=== PATIENT | male | born 1975 | race Two or more races ===

== ENCOUNTER 2016-11-13 15:29 | Emergency (ER) | payer SELFPAY ==
[~2016-11-13] VITALS: Ht 162.6 cm; Wt 72.6 kg
--- NOTE | 2016-11-13 16:01 | Diagnostic Imaging Report ---
Indications: Altered mental status Technique: Spiral acquisitions obtained through the brain. Angled axial and coronal 5 x 5 mm slices were reconstructed. Total dose length product 1837 mGycm. CTDI vol(s) 70, 70 mGy. Dose reduction achieved using automated exposure control Comparison: None Findings: There is evidence of cerebral and cerebellar volume loss, with mild enlargement of ventricles and extra-axial CSF spaces, out of proportion to patient's age. No acute hemorrhage or edema. No mass effect or midline shift. Normal hodge-white differentiation. Intact calvarium. Visualized orbits and sinuses are unremarkable. Impression: Cerebral and cerebellar volume loss, somewhat out of proportion to patient's age Negative for acute intracranial bleed or mass effect The CT scanner at [facility] is accredited by the [employer] and the scans are performed using protocols designed to limit radiation exposure to as low as reasonably achievable to attain images of sufficient resolution adequate for diagnostic evaluation.
--- NOTE | 2016-11-13 16:11 | Emergency Room Report ---
History of Present Illness General Chief Complaint: Alcohol Intoxication Source: EMS Present Illness HPI 31-year-old male presents to the emergency department brought by ambulance for altered mental status. EMS states that patient furnished bottle of vodka on scene. Patient is alert and verbal however due to altered mental status history of present illness and ROS is difficult to obtain. Patient states that he fell and he gives 2 different time frames one being 3 days ago and one being 8 years ago.. at this time patient is a poor historian. Allergies: Coded Allergies: UNABLE TO ASSESS (Unverified , 11/13/16) Patient History Past Medical History: see triage record Past Surgical History: none Pertinent Family History: none Nursing Documentation-[facility] Past Medical History Deferred: Pt Cognitively Impaired Past Medical History: Deferred Review of Systems All Other Systems: limited Physical Exam Vital Signs Date Time Temp Pulse Resp B/P (MAP) Pulse Ox O2 Delivery O2 Flow Rate FiO2 11/13/16 15:18 97.5 66 18 128/77 99 Room Air Medical Decision Making PA Attestation Dr. lopez is my supervising Physician whom patient management has been discussed with. Diagnostic Impression: Primary Impression: Acute alcoholic intoxication Qualified Codes: F10.929 - Alcohol use, unspecified with intoxication, unspecified ER Course 31-year-old male presents to the emergency department brought by ambulance for altered mental status. EMS states that patient furnished bottle of vodka on scene. Patient is alert and verbal however due to altered mental status history of present illness and ROS is difficult to obtain. Patient states that he fell and he gives 2 different time frames one being 3 days ago and one being 8 years ago.. at this time patient is a poor historian. pt. is NAD, pt. is alert, no obvious signs of trauma, slurred speech, and answers to questions are not always appropriate. pt is however very talkative . Ddx considered but are not limited to ETOH, Trauma, Syncope, dementia, OD Vital signs: are WNL, pt. is afebrile , non-hypertensive, NAD otherwise, non - toxic in appearance. H&PE are most consistent with ETOH acute intoxication, will do Head CT to r/o acute intracranial process. will do basic lab work and check ETOH level for confirmation of suspected dx. ORDERS: -CBC: pancytopenia -CMP: elevated LFTs -Serum ETOH: 484 -CT HEAD NO CONTRAST: No evidence of acute fracture, hemorrhage, or intracranial process Per: official radiology report ED INTERVENTIONS: -1 Liter NS Bolus Observance while he detoxifies. Pt. was allowed to sleep/rest. PT. became awake and alert x 3 DISCHARGE: At this time pt. is stable for d/c to home. Will provide printed patient care instructions, and any necessary prescriptions. Care plan and follow up instructions have been discussed with the patient prior to discharge. Labs Test 11/13/16 16:25 White Blood Count 3.1 K/UL (4.8-10.8) Red Blood Count 3.57 M/UL (4.70-6.10) Hemoglobin 12.5 G/DL (14.2-18.0) Hematocrit 35.5 % (42.0-52.0) Mean Corpuscular Volume 99 FL (80-99) Mean Corpuscular Hemoglobin 35.1 PG (27.0-31.0) Mean Corpuscular Hemoglobin Concent 35.3 G/DL (32.0-36.0) Red Cell Distribution Width 16.8 % (11.6-14.8) Platelet Count 104 K/UL (150-450) Mean Platelet Volume 6.7 FL (6.5-10.1) Neutrophils (%) (Auto) % (45.0-75.0) Lymphocytes (%) (Auto) % (20.0-45.0) Monocytes (%) (Auto) % (1.0-10.0) Eosinophils (%) (Auto) % (0.0-3.0) Basophils (%) (Auto) % (0.0-2.0) Differential Total Cells Counted 100 Neutrophils % (Manual) 51 % (45-75) Lymphocytes % (Manual) 43 % (20-45) Monocytes % (Manual) 4 % (1-10) Eosinophils % (Manual) 1 % (0-3) Basophils % (Manual) 0 % (0-2) Band Neutrophils 1 % (0-8) Platelet Estimate Decreased Platelet Morphology Normal Red Blood Cell Morphology Normal Sodium Level 144 mEQ/L (135-145) Potassium Level 3.4 mEQ/L (3.4-4.9) Chloride Level 104 mEQ/L (98-107) Carbon Dioxide Level 28 mEQ/L (20-30) Anion Gap 12 (5-15) Blood Urea Nitrogen 7 mg/dL (7-23) Creatinine 0.6 mg/dL (0.7-1.2) Estimat Glomerular Filtration Rate > 60 mL/min (>60) Glucose Level 91 mg/dL (74-106) Calcium Level 7.8 mg/dL (8.6-10.2) Total Bilirubin 0.4 mg/dL (0.0-1.2) Aspartate Amino Transf (AST/SGOT) 181 U/L (5-40) Alanine Aminotransferase (ALT/SGPT) 60 U/L (3-41) Alkaline Phosphatase 77 U/L (40-129) Total Protein 6.0 g/dL (6.6-8.7) Albumin 3.5 g/dL (3.5-5.2) Globulin 2.5 g/dL Albumin/Globulin Ratio 1.4 (1.0-2.7) Serum Alcohol 484 mg/dL Last Vital Signs Date Time Temp Pulse Resp B/P (MAP) Pulse Ox O2 Delivery O2 Flow Rate FiO2 11/13/16 15:18 97.5 66 18 128/77 99 Room Air Disposition: HOME, SELF-CARE Condition: Stable Patient Instructions: Alcohol Intoxication, [id number], Alcoholic Liver Disease, Liver Function Tests Additional Instructions: Take medications as directed. Follow up with a Primary Care Provider in 3-5 days, even if your symptoms have resolved. YOU HAVE ELEVATED LIVER ENZYMES INDICATING ALCOHOLIC LIVER DAMAGE follow up with PCP. --Please review list of primary care clinics, if you do not already have a primary care provider Return sooner to ED if new symptoms occur, or current symptoms become worse. - Please note that this Emergency Department Report was dictated using [employer] typist technology software, occasionally this can lead to erroneous entry secondary to interpretation by the dictation equipment. Ammy Langley Nov 13, 2016 16:10
[2016-11-13 16:17] VITALS: BP 128/77
[2016-11-13 16:38] LABS: MEAN CORPUSCULAR HEMOGLOBIN 35.1 PG (27.0-31.0); MEAN CORPUSCULAR HGB CONC 35.3 G/DL (32.0-36.0); MEAN CORPUSCULAR VOLUME 99 FL (80-99); MEAN PLATELET VOLUME 6.7 FL (6.5-10.1); PLATELET COUNT 104 K/UL (150-450); RED BLOOD COUNT 3.57 M/UL (4.70-6.10); RED CELL DISTRIBUTION WIDTH 16.8 % (11.6-14.8); WHITE BLOOD COUNT 3.1 K/UL (4.8-10.8)
[2016-11-13 17:11] LABS: ALANINE AMINOTRANSFERASE 60 U/L (3-41); ALBUMIN/GLOBULIN RATIO 1.4 (1.0-2.7); ANION GAP 12 (5-15); ASPARTATE AMINO TRANSFERASE 181 U/L (5-40); CALCIUM 7.8 mg/dL (8.6-10.2); CARBON DIOXIDE 28 mEQ/L (20-30); CHLORIDE 104 mEQ/L (98-107); CREATININE 0.6 mg/dL (0.7-1.2); GLOMERULAR FILTRATION RATE > 60 mL/min (>60); HEMOLYSIS 5; POTASSIUM 3.4 mEQ/L (3.4-4.9); SODIUM 144 mEQ/L (135-145)
[2016-11-13 17:37] LABS: ALCOHOL 484 mg/dL
[2016-11-13 18:04] LABS: BAND NEUTROPHILS % (MANUAL) 1 % (0-8); BASOPHILS % (MANUAL) 0 % (0-2); EOSINOPHILS % (MANUAL) 1 % (0-3); LYMPHOCYTES % (MANUAL) 43 % (20-45); NEUTROPHILS % (MANUAL) 51 % (45-75); PLATELET ESTIMATE DECREASED; PLATELET MORPHOLOGY NORMAL; TOTAL CELLS COUNTED 100
[2016-11-13 18:48] VITALS: BP 121/74
[2016-11-13 19:15] VITALS: BP 121/74
== END 2016-11-13 19:15 | disposition home or self-care (01) ==
LOC: EDBD 15:29 → EMR 19:15
DX: F10.129 Alcohol abuse with intoxication, unspecified (principal); Y90.8 Blood alcohol level of 240 mg/100 ml or more; R74.8 Abnormal levels of other serum enzymes; R41.82 Altered mental status, unspecified
CPT/HCPCS: 36415; 70450; 80053; 85007; 85025; 96360; 99284; G0480; 80329